=== PATIENT | female | born 1955 | race Caucasian/White ===

== ENCOUNTER → 2019-07-02 | Outpatient (CLI) | payer OTHER | LOC: RAD 15:01 | DX: Z13.6 Encounter for screening for cardiovascular disorders (principal); M18.9 Osteoarthritis of first carpometacarpal joint, unspecified; E78.00 Pure hypercholesterolemia, unspecified; I25.10 Atherosclerotic heart disease of native coronary artery without angina pectoris; M19.072 Primary osteoarthritis, left ankle and foot; M19.071 Primary osteoarthritis, right ankle and foot; M77.52 Other enthesopathy of left foot and ankle; M77.51 Other enthesopathy of right foot and ankle; M77.9 Enthesopathy, unspecified ==

== ENCOUNTER → 2019-08-18 | Outpatient (CLI) | payer OTHER | LOC: RAD 12:37 | DX: J45.20 Mild intermittent asthma, uncomplicated (principal) ==

== ENCOUNTER → 2019-08-26 | Outpatient (CLI) | payer OTHER ==
--- NOTE | 2019-08-27 20:00 | SLE ---
[facility] [place] [address] POLYSOMNOGRAPHY STUDY Name: JEVON ASTORGA Room #: REG [facility]#: [id number] Admission: 08/26/19 Attend Phys: Dharmesh López MD Discharge: Date of : 55 Report #: [id number] THIS REPORT FOR: //name// CC: Dharmesh MORGAN DATE OF SERVICE: 08/26/2019 REFERRING PHYSICIAN: Yodit Simon. The patient is a 64-year-old who weighs 231 pounds with a BMI of 39.6. The patient's Farber score was 8. The patient underwent a diagnostic sleep study performed at [facility]. During the night study, the patient spent 429 minutes in bed and slept for 335 minutes with a sleep efficiency of 78%. Sleep latency was 36.9 minutes with a REM latency of 82 minutes. Sleep architecture showed normal stage 1 sleep, increased stage 2 sleep, normal slow wave and reduced REM sleep. EKG monitoring revealed an average heart rate of 61 beats per minute. No sustained arrhythmias observed. No PLMs observed. Nocturnal oximetry study did not reveal any significant desaturations. Only 1.8 minutes were spent with oxygen saturations of less then 89%. During the night of the study, the patient had no apneas. There were 7 hypopneas. The patient's apnea hypopnea index was 1.3 per hour with a REM index of 7 per hour and a supine index of 1.3 per hour. Due to low AHI, the patient did not meet the split night criteria for CPAP initiation. IMPRESSION: 1. No clinically significant sleep disorder breathing. The patient's AHI for the entire night was 1.3 per hour. 2. No clinically significant nocturnal hypoxia. Only 1.8 minutes were spent in oxygen saturation less than 89%. 3. No clinically significant periodic limb movements. RECOMMENDATIONS: 1. The patient did not meet the split night criteria for CPAP initiation. [facility] [address] [place] [address] POLYSOMNOGRAPHY STUDY Name: JEVON ASTORGA Room #: [facility]#: [id number] Admission: 08/26/19 Attend Phys: Dharmesh López MD Discharge: Date of : 55 Report #: [id number] 2. Weight loss is advised. 3. Avoid [employer] depressants. <ELECTRONICALLY SIGNED> By: Dharmesh López MD 08/27/191999 1825 55 Dharmesh López MD /nt
== END ==
LOC: SLEEPLAB 08-21 13:14
DX: G47.30 Sleep apnea, unspecified (principal)